=== PATIENT | female | born 1990 | race American Indian/Alaskan Native ===

== ENCOUNTER 2016-10-07 21:54 | Emergency (ER) | payer OTHER ==
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
[2016-10-08 01:58] VITALS: BP 116/69
== END 2016-10-08 01:33 | disposition home or self-care (01) ==
LOC: ED 21:54
DX: M54.5 Low back pain (principal); V87.7XXA Person injured in collision between other specified motor vehicles (traffic), initial encounter; Y93.89 Activity, other specified; Y99.9 Unspecified external cause status; Y92.410 Unspecified street and highway as the place of occurrence of the external cause
CPT/HCPCS: 36415; 84702; 99282